=== PATIENT | female | born 1960 | race Asian ===

== ENCOUNTER 2016-04-04 09:23 | Outpatient (CLI) | payer BC, OTHER | END 2016-04-04 19:12 | disposition home or self-care (01) | LOC: MAMMO 09:23 | DX: Z12.31 Encounter for screening mammogram for malignant neoplasm of breast (principal) | CPT/HCPCS: G0202-TC ==

== ENCOUNTER 2017-04-21 09:49 | Outpatient (CLI) | payer BC, OTHER | END 2017-04-21 20:23 | disposition home or self-care (01) | LOC: MAMMO 09:49 | DX: Z12.31 Encounter for screening mammogram for malignant neoplasm of breast (principal) ==

== ENCOUNTER 2018-08-24 22:08 | Emergency (ER) | payer BC, OTHER ==
[~2018-08-24] VITALS: Ht 175.3 cm; Wt 97.1 kg
[2018-08-25 00:23] VITALS: BP 134/80; TEMP 98.6
== END 2018-08-25 00:24 | disposition home or self-care (01) ==
LOC: ED 22:08
DX: J01.80 Other acute sinusitis (principal)
CPT/HCPCS: 96372; 99282; J2930

== ENCOUNTER 2022-01-04 10:48 | Outpatient (CLI) | payer BC, OTHER | END 2022-01-04 18:52 | disposition home or self-care (01) | LOC: US 10:48 | PROVIDERS: ATTEND Internal Medicine | DX: R60.0 Localized edema (principal); M79.604 Pain in right leg ==

== ENCOUNTER 2022-07-30 09:28 | Outpatient (CLI) | payer BC, OTHER | END 2022-07-30 19:59 | disposition home or self-care (01) | LOC: MAMMO 09:28 | PROVIDERS: ATTEND Internal Medicine | DX: Z12.31 Encounter for screening mammogram for malignant neoplasm of breast (principal) ==

== ENCOUNTER 2022-08-31 23:34 | Emergency (ER) | payer BC, OTHER ==
[~2022-08-31] VITALS: Ht 175.3 cm; Wt 108.9 kg
[2022-08-31 23:50] VITALS: TEMP 98.1
[2022-09-01 01:05] VITALS: BP 145/75
== END 2022-09-01 01:05 | disposition home or self-care (01) ==
LOC: ED 23:34
DX: M79.661 Pain in right lower leg (principal)
CPT/HCPCS: 96372; 99282; J1885

== ENCOUNTER 2022-12-26 10:05 | Outpatient (CLI) | payer BC, OTHER | END 2022-12-26 19:54 | disposition home or self-care (01) | LOC: CT 10:05 | PROVIDERS: ATTEND Internal Medicine | DX: J01.90 Acute sinusitis, unspecified (principal) ==